=== PATIENT | male | born 1980 | race American Indian/Alaskan Native ===

== ENCOUNTER 2024-06-29 21:38 | Observation (INO) | payer MEDICARE, MEDICAID, SELFPAY ==
[2024-06-29 21:46] VITALS: BP 127/86; PULSE 82; RESP 18; TEMP 36.6; O2SAT 96
--- NOTE | 2024-06-29 22:01 | XR_ITS ---
Examination: CTA carotids with intravenous contrast CTA brain, head with intravenous contrast. 2-D sagittal, coronal reconstructions. 3-D reconstructions. Exam date and time: September 29, 2023 10:17 PM Indications: Stroke alert, onset focal neurologic deficit today CTDI: vol (mGy) 75 DLP: (mGycm) 447 Technique: Multiple CTA axial brain, head carotid images post intravenous contrast injection acute left sphenoid sinusitis cc, [id number]. 2-D sagittal, coronal reconstructions. 3-D reconstructions, 3-D post processing including vascular maximum intensity projection images. Low dose protocols were performed. One or more of the following dose reduction techniques were used; automated exposure control, adjustment of the mA and/or KV according to patient size, use of iterative reconstruction technique. Findings: Acute left sphenoid sinusitis No significant common carotid carotid bifurcation or internal carotid artery stenoses Codominant vertebral arteries with no critical stenosis No prevertebral large vessel arterial occlusions or thrombus Impression: No significant neck arterial stenoses No cerebral large vessel arterial occlusions, thrombus, dissection or cerebral aneurysm
--- NOTE | 2024-06-29 22:01 | XR_ITS ---
Examination: CT brain head without contrast. 2-D sagittal coronal reconstructions Date and time of exam:July 09, 2024 at 1008 hrs. Indications: Stroke alert, onset focal neurologic deficit today CTDI: vol (mGy):50.8 DLP: (mGycm):1001 Technique: Multiple CT axial sections of the brain have been obtained, 5 mm slice thickness. Contrast has not been administered. 2-D sagittal, coronal reconstructions have been obtained Low dose protocols were performed. One or more of the following dose reduction techniques were used; automated exposure control, adjustment of the mA and/or KV according to patient size, use of iterative reconstruction technique. Findings: No significant ventricular enlargement. Intra-axial or extra-axial hemorrhage density is not seen. No mass effect or midline shift Basal cisterns are not remarkable. Fourth ventricle is midline. Cranial vault intact. Impression: Negative for acute hemorrhage, mass effect or midline shift
--- NOTE | 2024-06-29 22:01 | EKG_ITS ---
[facility] Test Date: 2024-06-29 Pat Name: VASYL PITT Department: Room: - Gender: Male [employer]: : 1980 Requested By: Marcus Black Order Number: [id number] Reading MD: Marcus Black Measurements Intervals [place] Rate: 74 P: 66 RI: 181 QRS: 14 QRSD: 93 T: 64 QT: 371 QTc: 412 Interpretive Statements SINUS RHYTHM POSSIBLE RIGHT VENTRICULAR CONDUCTION DELAY [RSR (QR) IN V1/V2] SEPTAL MYOCARDIAL INFARCTION , PROBABLY OLD [40+ ms Q WAVE IN V1/V2] Compared to ECG 01/29/2024 12:15:14 Myocardial infarct finding now present /store/S0/[id number]/[id number].pdf
--- NOTE | 2024-06-29 22:02 | EDRME_ITS ---
Rapid Medical Screening Exam [facility] Arrival date/time: 06/29/24 21:38 44M with history of alcohol use (patient was drinking), anxiety and psych/drug abuse presents to ED with 1 hour of R-sided facial numbness and confusion. Patient's states patient may have had some cramping/seizure while sleeping. Patient states he's been drinking and doing drugs all his life and this feels different and does not feel like intoxication or withdrawal. Of note, patient has nystagmus on exam. Chief Complaint: Neuro Symptoms/Deficit Vital signs: Vital Signs Temperature 98 F 06/29/24 21:46 Pulse Rate 82 06/29/24 21:46 Respiratory Rate 18 06/29/24 21:46 Blood Pressure 127/86 H 06/29/24 21:46 Pulse Oximetry (%) 96 06/29/24 21:46 Oxygen Delivery Method Room Air 06/29/24 21:46
--- NOTE | 2024-06-29 22:05 | PC.NURSE ---
stroke consult Case # [id number]
[2024-06-29 22:21] VITALS: BP 131/66; PULSE 76; RESP 20; O2SAT 98
[2024-06-29 22:22] LABS: Basophils # (Auto) 0.1 Thou/mm3 (0.0-0.2); Basophils % (Auto) 1 % (0-2.5); Eosinophils # (Auto) 0.3 Thou/mm3 (0.0-0.5); Eosinophils % (Auto) 4 % (0-10); Hematocrit 45.2 % (41.0-53.0); Hemoglobin 15.5 g/dL (13.5-16.0); Immature Granulocytes % (Auto) 0 % (0-0); Immature Granulocytes Auto 0.03 Thou/mm3 (0.00-0.00); Lymphocytes # (Auto) 2.3 Thou/mm3 (1.0-4.8); Lymphocytes % (Auto) 30 % (10-50); Mean Corpuscular HGB Conc 34.3 g/dl (31.0-37.0); Mean Corpuscular Hemoglobin 30.2 pg (25.0-35.0); Mean Corpuscular Volume 88 fL (80-100); Monocytes # (Auto) 0.8 Thou/mm3 (0.0-0.8); Monocytes % (Auto) 11 % (0-12); Neutrophils % (Auto) 53 % (37-80); Nucleated Red Blood Cell % 0 /100 WBC (0); Platelet Count 259 Thou/mm3 (140-440); RDW Standard Deviation 39.6 fL (35.1-43.9); Red Blood Count 5.14 Miln/mm3 (4.50-5.90); White Blood Count 7.5 Thou/mm3 (3.8-10.6)
[2024-06-29 22:28] VITALS: PULSE 79
[2024-06-29 22:39] LABS: INR 1.1 (0.9-1.3); Partial Thromboplastin Time 25.1 Seconds (22.0-36.0)
[2024-06-29 22:42] LABS: Alanine Aminotransferase 19 U/L (10-49); Albumin, Serum 4.8 gm/dL (3.5-5.0); Albumin/Globulin Ratio 1.7 (1.2-2.2); Alcohol, Blood Medical 181.7 mg/dL (0-10.0); Alkaline Phosphatase 99 U/L (46-116); Anion Gap 5 (7-16); Aspartate Amino Transferase 19 U/L (0-34); BUN/Creatinine Ratio 9 Ratio (12-20); Bilirubin,Total 0.6 mg/dL (0.3-1.2); Blood Urea Nitrogen 7 mg/dL (9-23); Calcium 9.4 mg/dL (8.3-10.6); Calcium (Corrected) 9.4 mg/dL (8.5-10.1); Carbon Dioxide 29.9 mMol/L (20.0-31.0); Chloride 107 mMol/L (98-107); Creatinine (Component) 0.8 mg/dL (0.6-1.3); Estimated Creatinine Clearance 91.8 mL/min (>60); Globulin 2.8 gm/dL (2.3-3.5); Glucose 93 mg/dL (74-106); Magnesium 2.3 mg/dL (1.6-2.6); Osmolality,Calculated 281 (275-295); Potassium 3.9 mMol/L (3.4-5.1); Sodium 142 mMol/L (136-145); Total Protein 7.6 gm/dL (5.7-8.2); Troponin I < 0.002 ng/mL (0.0-0.045); eGFR > 60 See Note
--- NOTE | 2024-06-29 22:42 | PD.TNEURO ---
Tele Neuro Consultation Consultation Date 06/29/24 Most Recent Vital Signs Last Vital Signs Temp 98 F 06/29/24 21:46 Pulse 79 06/29/24 22:28 Resp 20 06/29/24 22:21 BP 131/66 H 06/29/24 22:21 Pulse Ox 98 06/29/24 22:21 O2 Del Method Room Air 06/29/24 22:21 Laboratory-Coagulation Panel PT 12.0 Seconds (9.0-12.2) 06/29/24 22:15 INR 1.1 (0.9-1.3) 06/29/24 22:15 APTT 25.1 Seconds (22.0-36.0) 06/29/24 22:15 Consultation Narrative [facility] Tele[facility]urology Consult [facility] Patient Name:???tiffanie barnett Date of :???1980 Date of Service:???06/29/2024 22:04:50 Diagnosis:?I63.89 - Cerebrovascular accident (CVA) due to other mechanism ([facility]) Impression: ?Mr. Barnett has left sided numbness on exam that he did not notice or tell me during the interview. He came to the ED with right face sensory change that has resolved and bilateral hand numbness. He feels like this is related to anxiety. He feels like he has dry mouth. He is not a thrombolytic candidate. He could be admitted for MRI brain to better evaluate for ischemic injury vs metabolic/toxic etiology. tox screen and alcohol level. Our recommendations are outlined below. Recommendations: ? Stroke/Telemetry Floor ? Neuro Checks ? Bedside Swallow Eval ? DVT Prophylaxis ? IV Fluids, Normal Saline ? Head of Bed 30 Degrees ? Euglycemia and Avoid Hyperthermia (PRN Acetaminophen) ? Initiate or continue Aspirin 325 MG daily ? Antihypertensives PRN if Blood pressure is greater than 220/120 or there is a concern for End organ damage/contraindications for permissive HTN. If blood pressure is greater than 220/120 give labetalol PO or IV or Vasotec IV with a goal of 15% reduction in BP during the first 24 hours. Sign Out: ? Discussed with Emergency Department Provider Advanced Imaging: Advanced imaging has been ordered. Results pending. Metrics: Last Known Well: 06/29/2024 17:00:00 Dispatch Time: 06/29/2024 22:04:50 Arrival Time: 06/29/2024 22:02:00 Initial Response Time: 06/29/2024 22:08:26Symptoms: right face felt odd. Initial patient interaction: 06/29/2024 22:17:19 NIHSS Assessment Completed: 06/29/2024 22:17:22Patient is not a candidate for Thrombolytic. Thrombolytic Medical Decision: 06/29/2024 22:17:24Patient was not deemed candidate for Thrombolytic because of following reasons: LKW outside 4.[address] head showed no acute hemorrhage or acute core infarct. I personally Reviewed the CT Head and it Showed no ICH Primary Provider Notified of Diagnostic Impression and Management Plan on: 06/29/2024 22:39:27 History of Present Illness:Patient is a 44 year old Male. Patient was brought by private transportation with symptoms of right face felt odd. 44 year old who admits to drinking before going to bed and presents with right face pulling sensation after falling asleep around 5 pm last known well. He thinks that it could be anxiety. He had previous HCT for headache and blurred vision this summer on review of the chart. He felt tingling in the hands that is now resolved. Past Medical History: ?There is no history of Stroke Medications: No Anticoagulant use? No Antiplatelet use Reviewed EMR for current medications Allergies:? Reviewed Social History: Alcohol Use: Yes Family History: There is no family history of premature cerebrovascular disease pertinent to this consultation ROS : 14 Points Review of Systems was performed and was negative except mentioned in HPI. Past Surgical History: There Is No Surgical History Contributory To Today?s Visit Examination: BP(127/86),?Pulse(82),?Blood Glucose(83) 1A: Level of Consciousness - Alert; keenly responsive?+ 0 1B: Ask Month and Age - Both Questions Right?+ 0 1C: Blink Eyes & Squeeze Hands - Performs Both Tasks?+ 0 2: Test Horizontal Extraocular Movements - Normal?+ 0 3: Test Visual Chapin - No Visual Loss?+ 0 4: Test Facial Palsy (Use Grimace if Obtunded) - Normal symmetry?+ 0 5A: Test Left Arm Motor Drift - No Drift for 10 Seconds?+ 0 5B: Test Right Arm Motor Drift - No Drift for 10 Seconds?+ 0 6A: Test Left Leg Motor Drift - No Drift for 5 Seconds?+ 0 6B: Test Right Leg Motor Drift - No Drift for 5 Seconds?+ 0 7: Test Limb Ataxia (FNF/Heel-You) - No Ataxia?+ 0 8: Test Sensation - Mild-Moderate Loss: Less Sharp/More Dull?+ 1 9: Test Language/Aphasia - Normal; No aphasia?+ 0 10: Test Dysarthria - Normal?+ 0 11: Test Extinction/Inattention - No abnormality?+ 0 NIHSS Score:?1 Pre-Morbid Modified Alan Scale:0 Points = No symptoms at all Spoke with :?Black in ED This consult was conducted in real time using interactive audio and video technology. Patient was informed of the technology being used for this visit and agreed to proceed. Patient located in hospital and provider located at home/office setting. Patient is being evaluated for possible acute neurologic impairment and high probability of imminent or life-threatening deterioration. I spent total of 35 minutes providing care to this patient, including time for face to face visit via telemedicine, review of medical records, imaging studies and discussion of findings with providers, the patient and/or family. Dr Toni Metz [facility] For Inpatient follow-up with [facility] physician please call [facility] at . As we are not an outpatient service for any post hospital discharge needs please contact the hospital for assistance. If you have any questions for the [facility] physicians or need to reconsult for clinical or diagnostic changes please contact us via [facility] at .
--- NOTE | 2024-06-29 23:00 | EDNOTE_ITS ---
Neuro Symptoms Deficit-RME/HPI General Chief Complaint: Neuro Symptoms/Deficit Stated Complaint: STATES FELT A SHIFT IN HIS FACE, DRY MOUTH Time Seen by Provider: 06/29/24 22:28 Arrival date/time: 06/29/24 21:38 RME / HPI RME / HPI Narrative: 06/29/24 21:38 44M with history of alcohol use, anxiety, remote hx of drug abuse presents to ED with 1 hour of R-sided facial numbness and confusion. Patient reported that he took 2 drinks and went to sleep and suddenly woke up feeling hot flushes and has numbness of the Rt side of his face. he also reported that he also felt cotton mouth and his mouth locked in a weird position. He reported that his symptoms lasted for one hour and resolved spontaneously. Denied any weakness, dysphagea, dizziness or blurry vision. He has ot seen a psychiatrist for his anxiety. Related Data Previous Rx's ?Medication ?Instructions ?Recorded cyclobenzaprine 5 mg tablet 5 mg PO TID PRN muscle spasm #30 07/07/23 tabs ibuprofen 600 mg tablet 600 mg PO Q6H #30 tabs 07/07/23 Allergies Allergy/AdvReac Type Severity Reaction Status Date / Time No Known Allergies Allergy Verified 06/29/24 21:40 ED Exam Narrative Physical exam: GEN: AOx3, able to speak full sentences, anxious, fidgity. no facial droop HEENT: NC/AC, oral mucosa moist, neck supple CVS: RRR, S1-S2 present, no murmurs appreciated RESP: CTAB GI: soft,non distended, non tender, NBS MSK: able to move all 4 limbs, no lower extremity edema SKIN: extensive tattoo, warm and dry CONFERENCE SERVICES DIRECTOR: CN II-XII and Sensation grossly intact. Course Quality Measures none Orders Category Date Time Status Bedside Blood Glucose NOW Care 06/29/24 22:01 Completed Orchid Grower NOW Care 06/29/24 22:01 Active Continuous Pulse Oximetry NOW Care 06/29/24 22:01 Completed EKG (ED ONLY) *Do not use* NOW Care 06/29/24 22:01 Active In and Out Catheter NEEDED Care 06/29/24 22:01 Active Insert IV NOW Care 06/29/24 22:01 Active NIH Stroke Scale now Care 06/29/24 22:01 Active NPO NOW Care 06/29/24 22:01 Active Nurse Swallow Screen x1 Care 06/29/24 22:01 Active Consult to Neurology / Tele-Neurology Routine Cons 06/29/24 22:[address] angio stroke protocol Stat Exams 06/29/24 22:[address] stroke protocol Stat Exams 06/29/24 22:01 Completed EKG (ED Only) Stat Exams 06/29/24 22:01 Draft Alcohol, Blood Medical Stat Lab 06/29/24 22:15 Completed CBC Stat Lab 06/29/24 22:15 Completed Comprehensive Metabolic Panel Stat Lab 06/29/24 22:15 Completed Drug Screen,Urine Stat Lab 06/29/24 22:01 Ordered Magnesium Stat Lab 06/29/24 22:15 Completed Partial Thromboplastin Time Stat Lab 06/29/24 22:15 Completed Prothrombin Time with INR Stat Lab 06/29/24 22:15 Completed Troponin I Stat Lab 06/29/24 22:15 Completed Urinalysis Stat Lab 06/29/24 22:01 Ordered Urine Culture Stat Lab 06/29/24 22:01 Ordered Aspirin Med 06/29/24 23:00 Once 325 mg PO X1 ONE Oxygen Delivery NOW RT 06/29/24 22:01 Active Vital Signs Vital signs: Vital Signs Temperature 98 F 06/29/24 21:46 Pulse Rate 82 06/29/24 21:46 Respiratory Rate 18 06/29/24 21:46 Blood Pressure 127/86 H 06/29/24 21:46 Pulse Oximetry (%) 96 06/29/24 21:46 Oxygen Delivery Method Room Air 06/29/24 21:46 Neuro Symptoms / Deficit MDM Narrative MDM Narrative:: Ct brain was -ve for any hemorrhage or mass effect. Teleneurologiest recommended to start the patient on Aspirin [id number] and admit for Stroke work up Ethyl level 181 Urine Drug screen still pending Patient data External records reviewed:: [facility] previous records Clinical information provided by:: patient and spouse Social determinants that could affect healthcare access:: alcohol use Patient has the following chronic illnesses:: Anxiety Polysubstance use disorder How is presenting disease/condition affected by chronic disease/condition?: exacerbated by Evaluation data The following diagnostics were reviewed and interpreted by me:: lab results, radiology exam(s) and EKG tracing(s) Lab and/or radiology exams considered but not ordered:: None Interpretation Summary: Possible stroke ? Anxiety Medications / Prescriptions Medications or Prescriptions considered but not ordered:: tPa Medication administrations:: Medication Administration History Aspirin (Aspirin 325 Mg Tablet) 325 mg PO X1 ONE Stop: 06/29/24 23:01 as above Consultations Consultation(s) initiated? (list below): Yes Diagnosis Neuro Differential Diagnosis: transient cerebral ischemia Most likely diagnosis given after review of the tests above:: Stroke ? Anxiety Admission Indicated Admission indicated?: indicated Admission Request Was there a request for admission?: Yes Admission Attestation Admission request attestation: Discussed case with [] from Hospitalist service regarding admission. Discussed patients ED course, exam findings, labs, and radiology results. The Hospitalist [agrees,declines] to accept the patient for admission. Disposition Plan Disposition Plan: Admit Discharge Plan Prescriptions/Referrals Prescriptions/Med Rec: No Action ibuprofen 600 mg tablet 600 mg PO Q6H Qty: 30 0RF cyclobenzaprine 5 mg tablet 5 mg PO TID PRN (Reason: muscle spasm) Qty: 30 0RF Problem List Clinical Impression: Cerebrovascular accident, Somatic complaints, multiple Patient/Caregiver Discharge Instructions Print Language: [place]
[2024-06-29] MEDS: Aspirin 325 MG TABLET PO (23:20)
[2024-06-29 23:39] LABS: Collection Type, Urine Clean Catch; RBC,Urine 0 /hpf (0-3); Squamous Epithelial Cell,Urine 0 /hpf (0-5)
[2024-06-29 23:48] LABS: Bilirubin,Urine Negative (Negative); Blood,Urine Negative (Negative); Clarity,Urine Clear (Clear/Hazy); Color,Urine Colorless (Lt Yel-Yel); Glucose, Urine Negative (Negative); Ketones,Urine Negative (Negative); Leukocyte Esterase,Urine Negative (Negative); Nitrite,Urine Negative (Negative); Protein,Urine Negative (Neg - Trace); Specific Gravity,Urine 1.018 (1.001-1.035); Urobilinogen,Urine Negative mg/dL (0.0-1.0); WBC,Urine < 1 /hpf (0-5)
[2024-06-29 23:55] LABS: Amphetamine/Methamp Scrn,U Negative (Negative); Barbiturate Screen,Urine Negative (Negative); Benzodiazepines Screen,Urine Negative (Negative); Benzoylecgonine Screen, Ur Negative (Negative); Fentanyl Screen,Urine Negative (Negative); Opiate Screen,Urine Negative (Negative); THC Screen,Urine Negative (Negative)
--- NOTE | 2024-06-29 23:55 | PD.RESHP ---
Documentation for date of: 06/29/24 [facility] History of Present Illness History of present illness: A 44-year-old male with a history of alcohol use disorder, anxiety, and polysubstance abuse presented to the ED with complaints of right-sided numbness. The patient reported drinking hard liquor with his earlier that evening, then going to sleep. He woke up and he felt like he was in the car with a loud speaker system and noticed mild numbness on the right side of his face, which had resolved by the time he arrived at the ED. He denied dizziness, chest pain, visual changes, palpitations, tinnitus, head trauma, or any other associated symptoms. The patient reported a history of anxiety but is not on medication for it, and mentioned increased stress at work recently. His , who was present, noted that the patient typically drinks hard liquor daily but was more aggressive after drinking today. The and the patient also mentioned that the patient sometimes experiences jaw spasms, with jaw muscle contractions and displacement to the side. On examination, the patient was hemodynamically stable. Labs including CBC and CMP were unremarkable. Urine tox screen was positive for alcohol. A stroke alert was initiated, and a CT and CTA of the head and neck were negative. A teleneuro consultation recommended starting aspirin and atorvastatin, and the patient was admitted for further evaluation with MRI to assess for potential neurologic causes of his symptoms PMH: Anxiety, alcohol use disorder, history of polysubstance abuse PSH: None Social history: Drinks hard liquor, currently denies any drug use, smokes tobacco Family history: Positive for heart disease Allergies NKDA Meds none Review of Systems Review of Systems Systems Reviewed: All systems reviewed, normal except as documented Exam Vital Signs Temp Pulse Resp BP Pulse Ox O2 Del Method 98 F 79 20 131/66 H 98 Room Air 06/29/24 21:46 06/29/24 22:28 06/29/24 22:21 06/29/24 22:21 06/29/24 22:21 06/29/24 22:21 Narrative Exam GENERAL: No acute distress, AAO x3, anxious, restless HEENT: Head AT/ NC. Mucous membranes moist. PERRL. NECK: Supple, no lymphadenopathy, no carotid bruits. CARDIOVASCULAR: RRR. Normal S1/S2, No m/r/g. No pitting edema of bilateral LEs. RESPIRATORY: CTAB. No wheezing, rhonchi, crackles. GASTROINTESTINAL: Abdomen soft, non tender no palpable masses. Bowel sounds present in all 4 quadrants. MUSCULOSKELETAL:?No cyanosis or edema, no visible joint swelling. NEUROLOGICAL: CN II-XII grossly intact. No focal deficits. Sensation intact, symmetric. PSYCHIATRIC: Awake and alert, not agitated. INTEGUMENTARY: No obvious rashes, no jaundice, normal turgor. Results: Labs 06/29/24 22:15 06/29/24 22:15 Labs: Short CBC 06/29/24 Range/Units 22:15 WBC 7.5 (3.8-10.6) Thou/mm3 Hgb 15.5 (13.5-16.0) g/dL Hct 45.2 (41.0-53.0) % Plt Count 259 (140-440) Thou/mm3 BMP 06/29/24 22:15 Sodium 142 Potassium 3.9 Chloride 107 Carbon Dioxide 29.9 BUN 7 L Creatinine 0.8 Glucose 93 Calcium 9.4 Cardiac Enzymes 06/29/24 Range/Units 22:15 Troponin I < 0.002 (0.0-0.045) ng/mL Liver Function 06/29/24 Range/Units 22:15 Total Bilirubin 0.6 (0.3-1.2) mg/dL AST 19 (0-34) U/L ALT 19 (10-49) U/L Alkaline Phosphatase 99 (46-116) U/L Albumin 4.8 (3.5-5.0) gm/dL Urine 06/29/24 Range/Units 22:54 Urine Color Colorless A (Lt Yel-Yel) Urine Clarity Clear (Clear/Hazy) Urine pH 7.0 (5.0-7.0) Ur Specific [place] 1.018 (1.001-1.035) Urine Protein Negative (Neg - Trace) Urine Glucose (UA) Negative (Negative) Quality Measures Quality Measures none Medications Home Medications and Allergies Allergies Allergy/AdvReac Type Severity Reaction Status Date / Time No Known Allergies Allergy Verified 06/29/24 21:40 Visit Medications Enoxaparin Sodium (Enoxaparin Sod Inj 40 Mg/0.4 Ml Syringe) 40 mg SC QDAY BOYD Stop: 07/14/24 08:59 Folic Acid (Folic Acid 1 Mg Tablet) 1 mg PO BID BOYD Stop: 07/05/24 08:59 Lorazepam (Lorazepam 2 Mg/Ml Vial) 0.5 mg IV Q2HR PRN PRN Reason: CIWA SCORE 8-13 Stop: 07/04/24 23:51 Lorazepam (Lorazepam 2 Mg/Ml Vial) 1 mg IV Q2HR PRN PRN Reason: CIWA SCORE 14-19 Stop: 07/04/24 23:51 Lorazepam (Lorazepam 2 Mg/Ml Vial) 2 mg IV Q2HR PRN PRN Reason: CIWA SCORE 20-25 Stop: 07/04/24 23:51 Lorazepam (Lorazepam 2 Mg/Ml Vial) 2 mg IVP X1 PRN PRN Reason: Breakthrough Agitation Thiamine HCl (Thiamine 100 Mg Tablet) 100 mg PO BID BOYD Stop: 07/05/24 08:59 Discontinued Medications Aspirin (Aspirin 325 Mg Tablet) 325 mg PO X1 ONE Stop: 06/29/24 23:01 Last Admin: 06/29/24 23:20 Dose: 325 mg Assessment & Plan Plan 44-year-old male history of alcohol use disorder came in with chief complaints of episode of numbness and was admitted for CVA rule out. #Numbness DDx TIA versus CVA versus anxiety versus alcohol intoxication Symptoms started after alcohol consumption, patient with described as he woke up from sleep in the car with a loud speaker system. CT head negative for mass, hemorrhage, midline shift CTA is negative for LVO Stroke alert was initiated In ED patient received 325 aspirin Very low suspicion of stroke, symptoms are most consistent with alcohol intoxication given the history. Also there might be component of anxiety. -NIHSS score 1 -Neurocheck Q4h -N.p.o. for now -Hypoglycemic state -Tylenol 40 mg daily -Control risk factors such as hypertension, hyperlipidemia -MR stroke protocol -Follow-up with the results -Consider whole stroke workup after MRI results #History of anxiety #History of alcohol abuse Patient denies any medication use he stated that usually he he knows how to cope with his anxiety Patient was extensively counseled about side effects of alcohol use -CIWA , last drink was today. Disposition: Tele obs DVT prophylaxis: Lovenox GI prophylaxis: None Diet: NPO Lines: PIV CODE STATUS:Full code Patient care was discussed with attending physician Dr. Koby Bermudez MD PGY-2 I have carefully reviewed this document. Due to imperfections in the voice software, there could be grammatical errors including phonetic/typographic errors. This in no way compromises the medical care the patient is receiving Attending Provider Attestation/Addendum Pt was evaluated and plan formulated together with the housestaff team. I have reviewed the residents note above and agree with most of its content. Please refer to the residents note for additional details. MR brain AM.
[2024-06-30] VITALS (14 sets, daily range): BP systolic 101–122; BP diastolic 64–83; PULSE 66–99; RESP 14–100; TEMP 36.5–37; O2SAT 95–100; BMI 19.5
--- NOTE | 2024-06-30 | XR_ITS ---
Examination: MRI brain without intravenous contrast. Date and time of exam: June 30, 2024 at 0737 hours INDICATIONS: Right-sided body numbness beginning yesterday Technique: Multiple axial and sagittal images of the brain obtained. Siemens high-resolution 1.5 Barby short bore scanners utilized. Sagittal sections, T1-weighted, TR 500, TE 14, are performed. Axial sections proton-density and T2-weighted have been obtained. Inversion recovery axial images, TR 9, 260, TE 111, TI 2500. Diffusion weighted images, axial sections, TR 4800, TE 128, B value 1000 Axial sections, ADC map, TR 4800, TE 128 Findings: Enlargement of the sella turcica is not present. The optic chiasm and infundibular are not remarkable. Prepontine and interpeduncular cisterns are not enlarged. There is no localized enlargement of the medulla or hung. Fourth ventricle and cerebellar tonsils appear normal in position. No subacute area of hemorrhage density is seen. Mass in the cerebellopontine angle region is not evident. Globes symmetrical. Orbital musculature including medial lateral rectus muscles do not exhibit abnormality. Diffusion-weighted images demonstrate no focus of restricted diffusion. Increased white matter signal not seen Mass effect upon the ventricular system is not identified. Impression: Negative for acute hemorrhage mass effect or midline shift No acute infarct No MR findings diagnostic for demyelinating disease Significant left ethmoid left maxillary antral chronic sinusitis
[2024-06-30] MEDS: LORazepam 2 MG/ML VIAL 0.5 MG IV ×2 (00:07→10:56)
--- NOTE | 2024-06-30 00:54 | PC.NURSE ---
Emergency contact Vidya can be reached @ [phone]
[2024-06-30 03:29] LABS: Collection Type, Urine Clean Catch
[2024-06-30 03:32] LABS: Bilirubin,Urine Negative (Negative); Blood,Urine Negative (Negative); Clarity,Urine Clear (Clear/Hazy); Color,Urine Colorless (Lt Yel-Yel); Glucose, Urine Negative (Negative); Ketones,Urine Negative (Negative); Leukocyte Esterase,Urine Negative (Negative); Nitrite,Urine Negative (Negative); Protein,Urine Negative (Neg - Trace); RBC,Urine < 1 /hpf (0-3); Specific Gravity,Urine 1.023 (1.001-1.035); Squamous Epithelial Cell,Urine < 1 /hpf (0-5); Urobilinogen,Urine Negative mg/dL (0.0-1.0); WBC,Urine < 1 /hpf (0-5)
[2024-06-30 03:39] LABS: Amphetamine/Methamp Scrn,U Negative (Negative); Barbiturate Screen,Urine Negative (Negative); Benzodiazepines Screen,Urine Negative (Negative); Benzoylecgonine Screen, Ur Negative (Negative); Fentanyl Screen,Urine Negative (Negative); Opiate Screen,Urine Negative (Negative); THC Screen,Urine Negative (Negative)
[2024-06-30 05:00] LABS: Basophils # (Auto) 0.1 Thou/mm3 (0.0-0.2); Basophils % (Auto) 1 % (0-2.5); Eosinophils # (Auto) 0.4 Thou/mm3 (0.0-0.5); Eosinophils % (Auto) 6 % (0-10); Hematocrit 44.1 % (41.0-53.0); Hemoglobin 14.7 g/dL (13.5-16.0); Immature Granulocytes % (Auto) 0 % (0-0); Immature Granulocytes Auto 0.02 Thou/mm3 (0.00-0.00); Lymphocytes # (Auto) 1.8 Thou/mm3 (1.0-4.8); Lymphocytes % (Auto) 26 % (10-50); Mean Corpuscular HGB Conc 33.3 g/dl (31.0-37.0); Mean Corpuscular Hemoglobin 29.9 pg (25.0-35.0); Mean Corpuscular Volume 90 fL (80-100); Monocytes # (Auto) 0.8 Thou/mm3 (0.0-0.8); Monocytes % (Auto) 11 % (0-12); Neutrophils # (Auto) 3.9 Thou/mm3 (1.8-7.7); Neutrophils % (Auto) 56 % (37-80); Nucleated Red Blood Cell % 0 /100 WBC (0); Platelet Count 257 Thou/mm3 (140-440); RDW Standard Deviation 40.2 fL (35.1-43.9); Red Blood Count 4.91 Miln/mm3 (4.50-5.90)
[2024-06-30 05:08] LABS: Anion Gap 6 (7-16); BUN/Creatinine Ratio 10 Ratio (12-20); Blood Urea Nitrogen 8 mg/dL (9-23); Carbon Dioxide 27.5 mMol/L (20.0-31.0); Chloride 108 mMol/L (98-107); Creatinine (Component) 0.8 mg/dL (0.6-1.3); Estimated Creatinine Clearance 91.8 mL/min (>60); Glucose 87 mg/dL (74-106); Osmolality,Calculated 278 (275-295); Potassium 4.1 mMol/L (3.4-5.1); Sodium 141 mMol/L (136-145); eGFR > 60 See Note
--- NOTE | 2024-06-30 07:31 | PC.NURSE ---
Patient transported to MRI with tech via wheelchair.
--- NOTE | 2024-06-30 08:56 | PC.CC ---
Patient is a 44 year-old male who presents to the hospital for CVA. Marsha ERWIN introduced self, role, and reason for visit to patient. At beside was patients , Vidya Rivera who patient provided consent to remain in the room during assessment. Patient appeared alert and oriented to self, location, and situation. The patient was pleasant and engaged in assessment. The patient confirmed information on demographics but reports he and his do not live together. Per patient's , she has her own home [address] [place] [id number]. Patient reports his is his main support system. 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 5 years. The patient reports he has generalized anxiety but does not take medication and is not connected to mental health services. Prior to being hospitalized patient was able to complete own ADLs and ambulate independently. The patient receives primary care at the [facility] and uses [facility] for prescription medication. The patient reports upon discharge he plans to return back home. coordinator volunteer services to remain available for any discharge needs.
[2024-06-30] MEDS: THIAMINE 100 MG TABLET PO ×2 (10:40→20:19)
[2024-06-30] MEDS: FOLIC ACID 1 MG TABLET PO ×2 (10:40→20:19)
[2024-06-30] MEDS: ENOXAPARIN SOD INJ 40 MG/0.4 ML SYRINGE SC (10:40)
--- NOTE | 2024-06-30 10:44 | PD.TNEUROPRO ---
Tele Neuro Progress Note Progress Note Date [facility] TeleNeurology Consult Services Routine Consult Follow-Up Patient Name:???Ector Miller Date of :???1980 Identification Number:??? Date of Service:???06/30/2024 10:40:06 Diagnosis?R29.810 - Facial numbness/ Facial weakness ?Y91.1 - Moderate alcohol intoxication Impression Mr. Miller has numbness in odd distributions as well as alcohol intoxication. MRI brain is negative for stroke and today he feels like his thinking is slow. I feel most likely at this point, alcohol related in terms of a hang-over . Recommend cutting back on alcohol. Ordered B12 level. Treat with oral B12 1000 mcg daily if <400. Can give supplemental Thiamine as well. Otherwise, no further recs. Call with questions. I will sign off. Our recommendations are outlined below Dispositions :No further recommendations Subjective I am seeing this patient in f/u. He is still having issues with thinking . The patient states thinking slowly at this point. Examination BP(136/76),?Pulse(76),?Temp(97.6),?Resp(15), 1A: Level of Consciousness - Alert; keenly responsive?+ 0 1B: Ask Month and Age - Both Questions Right?+ 0 1C: Blink Eyes & Squeeze Hands - Performs Both Tasks?+ 0 2: Test Horizontal Extraocular Movements - Normal?+ 0 3: Test Visual Chapin - No Visual Loss?+ 0 4: Test Facial Palsy (Use Grimace if Obtunded) - Normal symmetry?+ 0 5A: Test Left Arm Motor Drift - No Drift for 10 Seconds?+ 0 5B: Test Right Arm Motor Drift - No Drift for 10 Seconds?+ 0 6A: Test Left Leg Motor Drift - No Drift for 5 Seconds?+ 0 6B: Test Right Leg Motor Drift - No Drift for 5 Seconds?+ 0 7: Test Limb Ataxia (FNF/Heel-You) - No Ataxia?+ 0 8: Test Sensation - Normal; No sensory loss?+ 0 9: Test Language/Aphasia - Normal; No aphasia?+ 0 10: Test Dysarthria - Normal?+ 0 11: Test Extinction/Inattention - No abnormality?+ 0 NIHSS Score:?0 This consult was conducted in real time using interactive audio and video technology. Patient was informed of the technology being used for this visit and agreed to proceed. Patient located in hospital and provider located at home/office setting. Telehealth Neurology consultation was provided. I spent 20 minutes providing telehealth care. This includes time spent for face to face visit via telemedicine, review of medical records, imaging studies and discussion of findings with providers, the patient and/or family. Dr Austin Calles [facility] For Inpatient follow-up with [facility] physician please call [facility] at . As we are not an outpatient service for any post hospital discharge needs please contact the hospital for assistance. If you have any questions for the [facility] physicians or need to reconsult for clinical or diagnostic changes please contact us via [facility] at
[2024-06-30 11:18] LABS: Vitamin B12 379 pg/mL (211-911)
--- NOTE | 2024-06-30 14:10 | PC.NURSE ---
REPORT GIVEN TO CHRISTIAN, PATIENT WILL TRANSFER TO FLOOR ROOM 270
[2024-06-30] MEDS: chlordiazePOXIDE HCl 25 MG CAPSULE PO ×2 (15:37→21:25)
--- NOTE | 2024-06-30 15:48 | ESPR_ITS ---
<Statement entered by Shannon Day DO - 06/30/24 22:52> Senior attestation: Patient was examined and case was reviewed with team including attending physician. Note reviewed, I agree with most of its contents and agree with the patient's care. Additional comments as follows: Added librium and hydroxyzine due to alcohol use and withdrawal concern, low suspicion for CVA at this time given work up findings. Anticipate discharge in 24-48 hours. Shannon Day DO PGY-3 Documentation for date of: 06/30/24 Subjective Subjective Interval history: Patient was seen and examined at bedside. Per nursing, patient was experiencing severe anxiety, mild tremor, perspiration, headache. Initial CIWA score 12. Repeat CIWA this morning 9. He is denying any shortness of breath, chest pain, headache, nausea or vomiting. Vitals within normal limits. Labs significant for urine alcohol level 181. Will start hydroxyzine 25 p.o. twice daily as needed for anxiety. Will continue to monitor patient.?No further complaints at this time. Review of systems otherwise negative except what is mentioned above. Exam Vital Signs Temp Pulse Resp BP Pulse Ox O2 Del Method O2 Flow Rate 97.8 F 87 18 109/72 98 Room Air 1 06/30/24 14:33 06/30/24 14:33 06/30/24 14:33 06/30/24 14:33 06/30/24 14:33 06/30/24 14:33 06/30/24 06:07 Narrative Exam GENERAL: No acute distress, AAO x3, anxious HEENT: Head AT/ NC. Mucous membranes moist. PERRL. NECK: Supple, no lymphadenopathy, no carotid bruits. CARDIOVASCULAR: RRR. Normal S1/S2, No m/r/g. No pitting edema of bilateral LEs. RESPIRATORY: CTAB. No wheezing, rhonchi, crackles. GASTROINTESTINAL: Abdomen soft, non tender no palpable masses. Bowel sounds present in all 4 quadrants. MUSCULOSKELETAL:?No cyanosis or edema, no visible joint swelling. NEUROLOGICAL: CN II-XII grossly intact. No focal deficits. Sensation intact, symmetric. PSYCHIATRIC: Awake and alert, not agitated. INTEGUMENTARY: No obvious rashes, no jaundice, normal turgor. Objective Labs 07/01/24 04:25 07/01/24 04:25 Labs: Laboratory Results - last 24 hr 11/07/24 11/07/24 11/08/24 22:15 22:54 03:25 WBC 7.5 RBC 5.14 Hgb 15.5 Hct 45.2 MCV 88 MCH 30.2 MCHC 34.3 RDW Std Deviation 39.6 Plt Count 259 Neut % (Auto) 53 Lymph % (Auto) 30 [place] % (Auto) 11 Eos % (Auto) 4 Baso % (Auto) 1 Neut # (Auto) 4.0 Lymph # (Auto) 2.3 [place] # (Auto) 0.8 Eos # (Auto) 0.3 Baso # (Auto) 0.1 Immature Gran # (Auto) 0.03 H Absolute Nucleated RBC 0.00 Immature Gran % 0 Nucleated RBC % 0 PT 12.0 INR 1.1 APTT 25.1 Sodium 142 Potassium 3.9 Chloride 107 Carbon Dioxide 29.9 Anion Gap 5 L BUN 7 L Creatinine 0.8 Estim Creat Clear Calc 91.8 eGFR > 60 BUN/Creatinine Ratio 9 L Glucose 93 Calculated Osmolality 281 Calcium 9.4 Corrected Calcium 9.4 Magnesium 2.3 Total Bilirubin 0.6 AST 19 ALT 19 Alkaline Phosphatase 99 Troponin I < 0.002 Total Protein 7.6 Albumin 4.8 Globulin 2.8 Albumin/Globulin Ratio 1.7 Vitamin B12 Ur Collection Type Clean Catch Clean Catch Urine Color Colorless A Colorless A Urine Clarity Clear Clear Urine pH 7.0 7.0 Ur Specific [place] 1.018 1.023 Urine Protein Negative Negative Urine Glucose (UA) Negative Negative Urine Ketones Negative Negative Urine Blood Negative Negative Urine Nitrite Negative Negative Urine Bilirubin Negative Negative Urine Urobilinogen (Auto) Negative Negative Ur Leukocyte Esterase Negative Negative Urine RBC 0 < 1 Urine WBC < 1 < 1 Ur Squamous Epith Cells 0 < 1 Urine Bacteria None None Urine Opiates Screen Negative Negative Urine Fentanyl Screen Negative Negative Ur Barbiturates Screen Negative Negative U Amphetamin/Meth Scrn Negative Negative U Benzodiazepines Scrn Negative Negative U Cocaine Metab Screen Negative Negative U Marijuana (THC) Screen Negative Negative Ethyl Alcohol 181.7 H 06/30/24 04:40 WBC 7.0 RBC 4.91 Hgb 14.7 Hct 44.1 MCV 90 MCH 29.9 MCHC 33.3 RDW Std Deviation 40.2 Plt Count 257 Neut % (Auto) 56 Lymph % (Auto) 26 [place] % (Auto) 11 Eos % (Auto) 6 Baso % (Auto) 1 Neut # (Auto) 3.9 Lymph # (Auto) 1.8 [place] # (Auto) 0.8 Eos # (Auto) 0.4 Baso # (Auto) 0.1 Immature Gran # (Auto) 0.02 H Absolute Nucleated RBC 0.00 Immature Gran % 0 Nucleated RBC % 0 PT INR APTT Sodium 141 Potassium 4.1 Chloride 108 H Carbon Dioxide 27.5 Anion Gap 6 L BUN 8 L Creatinine 0.8 Estim Creat Clear Calc 91.8 eGFR > 60 BUN/Creatinine Ratio 10 L Glucose 87 Calculated Osmolality 278 Calcium 9.0 Corrected Calcium Magnesium Total Bilirubin AST ALT Alkaline Phosphatase Troponin I Total Protein Albumin Globulin Albumin/Globulin Ratio Vitamin B12 379 Ur Collection Type Urine Color Urine Clarity Urine pH Ur Specific [place] Urine Protein Urine Glucose (UA) Urine Ketones Urine Blood Urine Nitrite Urine Bilirubin Urine Urobilinogen (Auto) Ur Leukocyte Esterase Urine RBC Urine WBC Ur Squamous Epith Cells Urine Bacteria Urine Opiates Screen Urine Fentanyl Screen Ur Barbiturates Screen U Amphetamin/Meth Scrn U Benzodiazepines Scrn U Cocaine Metab Screen U Marijuana (THC) Screen Ethyl Alcohol Quality Measures Quality Measures none Assessment & Plan Assessment Current Active Medications: Generic Name Dose Route Start Last Admin Trade Name Freq PRN Reason Stop Dose Admin Chlordiazepoxide HCl 25 mg 06/30/24 14:25 06/30/24 15:37 Chlordiazepoxide Hcl 25 Mg Capsule PO 07/05/24 14:24 25 mg Q8HR BOYD Administration Enoxaparin Sodium 40 mg 06/30/24 09:00 06/30/24 10:40 Enoxaparin Sod Inj 40 Mg/0.4 Ml Syringe SC 07/14/24 08:59 40 mg QDAY BOYD Administration Folic Acid 1 mg 06/30/24 09:00 06/30/24 10:40 Folic Acid 1 Mg Tablet PO 07/05/24 08:59 1 mg BID BOYD Administration Lorazepam 0.5 mg 06/29/24 23:52 06/30/24 10:56 Lorazepam 2 Mg/Ml Vial IV 07/04/24 23:51 0.5 mg Q2HR PRN Administration CIWA SCORE 8-13 Lorazepam 1 mg 06/29/24 23:52 Lorazepam 2 Mg/Ml Vial IV 07/04/24 23:51 Q2HR PRN CIWA SCORE 14-19 Lorazepam 2 mg 06/29/24 23:52 Lorazepam 2 Mg/Ml Vial IV 07/04/24 23:51 Q2HR PRN CIWA SCORE 20-25 Lorazepam 2 mg 06/29/24 23:52 Lorazepam 2 Mg/Ml Vial IVP X1 PRN Breakthrough Agitation Thiamine HCl 100 mg 06/30/24 09:00 06/30/24 10:40 Thiamine 100 Mg Tablet PO 07/05/24 08:59 100 mg BID BOYD Administration Plan 44-year-old male history of alcohol use disorder came in with chief complaints of episode of numbness and was admitted for CVA rule out. #Numbness DDx TIA versus CVA versus anxiety versus alcohol intoxication Symptoms started after alcohol consumption, patient with described as he woke up from sleep in the car with a loud speaker system. CT head negative for mass, hemorrhage, midline shift CTA is negative for LVO. MRI negative for acute changes. In ED patient received 325 aspirin Very low suspicion of stroke, symptoms are most consistent with alcohol intoxication given the history. Also there might be component of anxiety. NIHSS score 1 -diet regular -Control risk factors such as hypertension, hyperlipidemia #History of anxiety #History of alcohol abuse Patient denies any medication use he stated that usually he he knows how to cope with his anxiety Patient was extensively counseled about side effects of alcohol use -CIWA score 9 today -start hydroxyzine 25 mg p.o. twice daily as needed Disposition: Tele obs DVT prophylaxis: Lovenox GI prophylaxis: None Diet: Regular Lines: PIV CODE STATUS:Full code The patient's management plan was discussed with my attending physician Dr. Walker and seniors Dr. Dya/Dr. Styles. Laurie Wyatt, PGY-1 Attending Provider Attestation/Addendum Katrin Gutierrez, DO, attest that I was physically present for the tavera portions of the service and evaluated the patient with the resident and I reviewed and discussed the case with the resident and agree with the resident's findings and plans of care as documented above Patient seen and eval this afternoon in the ED. is at bedside. The patient states that he drinks 4-5 tall cans of mikes harder lemonade daily. However, he suffers from a lot of anxiety and has tried to quit drinking. Patient was acting out of the ordinary per his and was subsequently brought to the ED yesterday. She states that he appeared to speak with his jaw crooked yesterday. However, MRI was done today showing no evidence of CVA. Patient does appear to have a CIWA score of 12 at this time with headache, nausea, tremor, anxiety and agitation. at bedside is asking if patient can receive medications for anxiety going home. Discussed the concern for addictive properties of benzodiazepines given for anxiety. states that she does not wish for patient to be dependent on medications. May consider hydroxyzine for anxiety upon discharge. However, patient has been seeing a physician outpatient at the [facility] during which he received naltrexone. However that physician to no longer works there and patient has 6 more pills in naltrexone at home. Will have case management social worker provided resources for substance rehabilitation. Will continue to monitor will refer acute alcohol withdrawal at this time.
[2024-07-01] VITALS (12 sets, daily range): BP systolic 94–123; BP diastolic 59–84; PULSE 55–113; RESP 15–99; TEMP 36.2–37.1; O2SAT 97–100; BMI 19.5
[2024-07-01] MEDS: chlordiazePOXIDE HCl 25 MG CAPSULE PO ×3 (05:08→21:36)
[2024-07-01 05:58] LABS: Basophils # (Auto) 0.1 Thou/mm3 (0.0-0.2); Basophils % (Auto) 1 % (0-2.5); Eosinophils # (Auto) 0.5 Thou/mm3 (0.0-0.5); Eosinophils % (Auto) 6 % (0-10); Hematocrit 44.2 % (41.0-53.0); Hemoglobin 14.6 g/dL (13.5-16.0); Immature Granulocytes % (Auto) 0 % (0-0); Immature Granulocytes Auto 0.02 Thou/mm3 (0.00-0.00); Lymphocytes # (Auto) 2.3 Thou/mm3 (1.0-4.8); Lymphocytes % (Auto) 30 % (10-50); Mean Corpuscular Hemoglobin 30.5 pg (25.0-35.0); Mean Corpuscular Volume 92 fL (80-100); Monocytes # (Auto) 0.8 Thou/mm3 (0.0-0.8); Monocytes % (Auto) 11 % (0-12); Neutrophils % (Auto) 52 % (37-80); Nucleated Red Blood Cell % 0 /100 WBC (0); Platelet Count 235 Thou/mm3 (140-440); RDW Standard Deviation 42.2 fL (35.1-43.9); Red Blood Count 4.79 Miln/mm3 (4.50-5.90); White Blood Count 7.8 Thou/mm3 (3.8-10.6)
[2024-07-01 06:32] LABS: Anion Gap 6 (7-16); BUN/Creatinine Ratio 26 Ratio (12-20); Blood Urea Nitrogen 21 mg/dL (9-23); Calcium 8.8 mg/dL (8.3-10.6); Carbon Dioxide 28.2 mMol/L (20.0-31.0); Chloride 108 mMol/L (98-107); Creatinine (Component) 0.8 mg/dL (0.6-1.3); Estimated Creatinine Clearance 89.4 mL/min (>60); Glucose 81 mg/dL (74-106); Osmolality,Calculated 285 (275-295); Potassium 3.6 mMol/L (3.4-5.1); Sodium 142 mMol/L (136-145); eGFR > 60 See Note
[2024-07-01] MEDS: LORazepam 2 MG/ML VIAL 0.5 MG IV (06:56)
--- NOTE | 2024-07-01 06:58 | PC.NURSE ---
Pt. refused beds alarm at this time. Pt. feeling anxious, nausea, headache. CIWA performed and scored 10. pt. is AOX4, ativan given per PRN orders. pt,. educated on fall precautions and agrees to call. Call light and belongings within reach.
[2024-07-01] MEDS: ACETAMINOPHEN 325 MG TABLET 650 MG PO (07:44)
[2024-07-01] MEDS: ENOXAPARIN SOD INJ 40 MG/0.4 ML SYRINGE SC (08:07)
[2024-07-01] MEDS: FOLIC ACID 1 MG TABLET PO ×2 (08:07→20:17)
[2024-07-01] MEDS: THIAMINE 100 MG TABLET PO ×2 (08:07→20:17)
[2024-07-01] MEDS: ONDANSETRON INJ 2 MG/ML INJ 2 ML 4 MG IV ×2 (08:25→20:16)
--- NOTE | 2024-07-01 08:26 | PC.NURSE ---
Dr. Wyatt at bedside, [facility] reassessed and at 22 at this time. orders to give PRN atarax now and zofran. Dr. Wyatt states I will ask my senior about giving an extra dose of Ativan now since next dose cant be given until 11 AM.
[2024-07-01] MEDS: hydrOXYzine HCL 25 MG TABLET PO (08:32)
[2024-07-01] MEDS: LORazepam 2 MG/ML VIAL IVP (10:00)
--- NOTE | 2024-07-01 10:13 | ESPR_ITS ---
<Statement entered by Shannon Day DO - 07/01/24 15:30> Senior attestation: Patient was examined and case was reviewed with team including attending physician. Note reviewed, I agree with most of its contents and agree with the patient's care. Discharge was initially planned however patient noted to vomit this morning with tremors, CIWA reported 20+. Will continue treatment for alcohol withdrawal. Following neurology recommendations, vitamin B12 given x1 today. Had extensive discussion with patient and family today, patient describes strong desire to quit alcohol use, however family is interested in receiving prescription of ativan upon discharge. Have been explained the risks of benzodiazepine use, encouraged to speak with case management team who will provide resources for alcohol cessation. Shannon Day DO PGY-3 Documentation for date of: 07/01/24 Subjective Subjective Interval history: Patient was seen and examined at bedside. Per nursing, patient was experiencing headache and numbness/tingling earlier in the morning. He was given 0.5 mg Ativan along with Tylenol 650 p.o.? Patient stated that he is still experiencing anxiety, nausea, decreased appetite, headache. This is the longest time patient has gone without a drink. An episode of vomiting was witnessed at bedside and minor noticeable tremor of hands. No visible sweating. Recalculated CIWA was 22. Patient was given hydroxyzine 25 p.o. x 1, Zofran, 2 mg Ativan IV x 1. Labs and vitals reviewed within normal limits. Will continue CIWA protocol. Review of systems otherwise negative except what is mentioned above. Exam Vital Signs Temp Pulse Resp BP Pulse Ox O2 Del Method O2 Flow Rate 97.9 F 88 17 115/75 99 Room Air 1 07/01/24 07:45 07/01/24 08:29 07/01/24 08:29 07/01/24 07:45 07/01/24 07:45 07/01/24 07:45 06/30/24 06:07 Narrative Exam General: Alert and oriented x3. Anxious but cooperative Eyes: Pupils are equal and reactive to light bilaterally HEENT: Atraumatic, normocephalic. No JVD noted. Mucosa moist. Cardiovascular: Normal S1 and S2. Regular rate and rhythm. No pitting edema Respiratory: Lungs are clear to auscultation bilaterally. No wheezing or crackles heard. Abdomen: Soft, nontender, not distended, normal bowel sounds. Skin: Warm to touch, dry, no rashes noted Musculoskeletal: No gross injuries. Able to move all 4 extremities. Neuro: Alert and oriented x3. No focal neuro deficits. Psych:Anxioius, CIWA 22, mild hand tremors Objective Labs 07/01/24 04:25 07/01/24 04:25 Labs: Laboratory Results - last 24 hr 06/30/24 07/01/24 04:40 04:25 WBC 7.8 RBC 4.79 Hgb 14.6 Hct 44.2 MCV 92 MCH 30.5 MCHC 33.0 RDW Std Deviation 42.2 Plt Count 235 Neut % (Auto) 52 Lymph % (Auto) 30 [place] % (Auto) 11 Eos % (Auto) 6 Baso % (Auto) 1 Neut # (Auto) 4.0 Lymph # (Auto) 2.3 [place] # (Auto) 0.8 Eos # (Auto) 0.5 Baso # (Auto) 0.1 Immature Gran # (Auto) 0.02 H Absolute Nucleated RBC 0.00 Immature Gran % 0 Nucleated RBC % 0 Sodium 142 Potassium 3.6 D Chloride 108 H Carbon Dioxide 28.2 Anion Gap 6 L BUN 21 Creatinine 0.8 Estim Creat Clear Calc 89.4 eGFR > 60 BUN/Creatinine Ratio 26 H Glucose 81 Calculated Osmolality 285 Calcium 8.8 Vitamin B12 379 Quality Measures Quality Measures none Assessment & Plan Assessment Current Active Medications: Generic Name Dose Route Start Last Admin Trade Name Freq PRN Reason Stop Dose Admin Acetaminophen 650 mg 07/01/24 07:26 07/01/24 07:44 Acetaminophen 325 Mg Tablet PO 07/31/24 07:25 650 mg Q6HR PRN Administration Pain 1-3 or Fever > 101 Chlordiazepoxide HCl 25 mg 06/30/24 14:25 07/01/24 05:08 Chlordiazepoxide Hcl 25 Mg Capsule PO 07/05/24 14:24 25 mg Q8HR BOYD Administration Enoxaparin Sodium 40 mg 06/30/24 09:00 07/01/24 08:07 Enoxaparin Sod Inj 40 Mg/0.4 Ml Syringe SC 07/14/24 08:59 40 mg QDAY BOYD Administration Folic Acid 1 mg 06/30/24 09:00 07/01/24 08:07 Folic Acid 1 Mg Tablet PO 07/05/24 08:59 1 mg BID BOYD Administration Hydroxyzine HCl 25 mg 06/30/24 16:47 07/01/24 08:32 Hydroxyzine Hcl 25 Mg Tablet PO 07/30/24 20:59 25 mg BID PRN Administration ANXIETY Lorazepam 0.5 mg 06/29/24 23:52 07/01/24 06:56 Lorazepam 2 Mg/Ml Vial IV 07/04/24 23:51 0.5 mg Q2HR PRN Administration CIWA SCORE 8-13 Lorazepam 1 mg 06/29/24 23:52 Lorazepam 2 Mg/Ml Vial IV 07/04/24 23:51 Q2HR PRN CIWA SCORE 14-19 Lorazepam 2 mg 06/29/24 23:52 Lorazepam 2 Mg/Ml Vial IV 07/04/24 23:51 Q2HR PRN CIWA SCORE 20-25 Lorazepam 2 mg 06/29/24 23:52 Lorazepam 2 Mg/Ml Vial IVP X1 PRN Breakthrough Agitation Ondansetron HCl 4 mg 07/01/24 08:22 07/01/24 08:25 Ondansetron Inj 2 Mg/Ml Inj 2 Ml IV 07/31/24 08:21 4 mg Q6HR PRN Administration NAUSEA OR VOMITING Protocol Thiamine HCl 100 mg 06/30/24 09:00 07/01/24 08:07 Thiamine 100 Mg Tablet PO 07/05/24 08:59 100 mg BID BOYD Administration Plan 44-year-old male history of alcohol use disorder came in with chief complaints of episode of numbness and was admitted for CVA rule out. #Numbness DDx TIA versus CVA versus anxiety versus alcohol intoxication Symptoms started after alcohol consumption, patient with described as he woke up from sleep in the car with a loud speaker system. CT head negative for mass, hemorrhage, midline shift CTA is negative for LVO. MRI negative for acute changes. In ED patient received 325 aspirin Very low suspicion of stroke, symptoms are most consistent with alcohol intoxication given the history. Also there might be component of anxiety. NIHSS score 1 -diet regular -Control risk factors such as hypertension, hyperlipidemia #History of anxiety #History of alcohol abuse Patient denies any medication use he stated that usually he he knows how to cope with his anxiety Patient was extensively counseled about side effects of alcohol use -CIWA score 22 today -start hydroxyzine 25 mg p.o. twice daily as needed -patient had worsening symptoms this morning with headache, n/v -gave lorazepam 2 mg IV x1 -keep assessing for additional doses -per neuro rec, patient was given B12 inj 1000mcg x1 Disposition: Tele, CIWA DVT prophylaxis: Lovenox GI prophylaxis: None Diet: Regular Lines: PIV CODE STATUS:Full code The patient's management plan was discussed with my attending physician Dr. Walker and senior Dr. Day. Laurie Wyatt, PGY-1 Attending Provider Attestation/Addendum Brenda, Katrin Walker, DO, attest that I was physically present for the tavera portions of the service and evaluated the patient with the resident and I reviewed and discussed the case with the resident and agree with the resident's findings and plans of care as documented above Patient seen and evaluated this Am. He endorses nausea, headache, vomiting and anxiety. at bedside in afternoon requesting for medications for patient to have upon discharge. Patient has been very agitated and states that he needs medications for his panic attacks, otherwise he will go back to drinking. Explained to both patient and that he needs to go see a psychiatrist outpatient and f/u with substance rehabilitation program. However, patient stated he cannot go into a program because he needs to work. Patient is very insistent that he needs medications. Explained to them that benzodiazepines can also be very addictive and result in a new addiction. Patient and states that they need medications to hold him over until his next follow up. Discussed the risks of withdrawals from both medications and substances with patient and . Will continue with current management at this time as his CIWA score remains elevated. Will taper librium at this time and have family welfare social work professor speak with patient regarding substance rehab.
--- NOTE | 2024-07-01 11:08 | PC.NURSE ---
Spoke with Pt. and at bedside. Both persons concerned with Discharge planning. Per pt. and family pt shelton with severe anxiety by drinking alcohol. Pt. reports trying many other things such as deep breathing, relaxation techniques, and other methods of coping with and treating anxiety, but alcohol is the only thing that pt. reports has helped deal with the anxiety. Pt. and are concerned about treatment pt. will receive when going home. MASTER Mendoza notified that pt. needs community resources for alcoholism and alcohol cessation.
--- NOTE | 2024-07-01 12:45 | PC.NURSE ---
Addendum entered by Norma Greco RN 07/01/24 12:53: Dr. Wyatt agrees to call pt. Kenna, phone number for Kenna provided to Dr. Wyatt. Original Note: Dr. Wyatt aware of CIWA score of 20. orders to hold off on PRN ativan order at this time, i will come see him again and we can reassess on the ativan need/dose. Dr. Wyatt also made aware of extensive conversation about pt. alcohol addiction and his need and desire to quit drinking, also made aware of pt. anxiety due to working two jobs 7 days a week. Pt. family and pt. requesting to coordinate plans for discharge now and requests to get medication for home to help with anxiety, at least for a short period of time, until a new primary doctor can be established. Per Dr. Wyatt I will speak to Dr. Walker about this issue.
[2024-07-01] MEDS: CYANOCOBALAMIN INJ 1,000 mCg/ML VIAL 1000 MCG IM (13:07)
--- NOTE | 2024-07-01 14:46 | PC.NURSE ---
Pt. refusing bed alarm again, fall precautions and education provided to pt. and agrees. at bedside.
--- NOTE | 2024-07-01 17:57 | PC.NURSE ---
station manager tech called to RN to notify that pt. leads were off. When RN entered room to check on pt., pt. was in the shower despite being told by the doctor that he could not get in the shower at this due to alcohol withdrawal symptoms. When asking pt. who told him it was okay to get in the shower pt. states no one, I had to shower. Pt. provided with towels and educated on how to pull cable in shower for assistance. RN attempted to call Dr. Yoselin yee to notify of issues, no response by provider.
[2024-07-01] MEDS: LORazepam 2 MG/ML VIAL IV (20:17)
[2024-07-02] VITALS: PULSE 111
[2024-07-02] MEDS: hydrOXYzine HCL 25 MG TABLET PO (00:21)
== END 2024-07-02 01:31 | disposition left against medical advice (07) ==
LOC: SERX 23:50 → SERHOLD 06-30 06:19 → S2NX 06-30 14:28
PROVIDERS: Physician Assistant; Psychiatry & Neurology Neurology; Admitting Provider Internal Medicine; Emergency Provider Emergency Medicine; PCP Physician Assistant; Visit Provider Internal Medicine
DX: F10.229 Alcohol dependence with intoxication, unspecified (principal); F41.9 Anxiety disorder, unspecified; R29.701 NIHSS score 1; Z82.49 Family history of ischemic heart disease and other diseases of the circulatory system
CPT/HCPCS: 36415; 70450; 70496; 70498; 70551; 80048; 80053; 80307; 80320; 81001; 82607; 83735; 84484; 85025; 85610; 85730; 87086; 93005; 96372; 99285; A4649; G0378; J1650; J2060; J2405; J3420; Q9967; A9270; G0480

== ENCOUNTER 2024-10-26 17:56 | Emergency (ER) | payer MEDICARE, MEDICAID, SELFPAY ==
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
[2024-10-26 18:34] VITALS: BMI 25.8
== END 2024-10-26 18:50 ==
LOC: SERX 18:39
PROVIDERS: Emergency Provider Emergency Medicine
DX: Z02.89 Encounter for other administrative examinations (principal)
CPT/HCPCS: 99281

== ENCOUNTER 2025-03-03 07:24 | Emergency (ER) | payer MEDICARE, MEDICAID, SELFPAY ==
[2025-03-03 07:29] VITALS: PULSE 62; RESP 12; O2SAT 98; BMI 21.9
[2025-03-03 07:31] VITALS: BP 128/87; PULSE 62; RESP 16; TEMP 36.6; O2SAT 100
--- NOTE | 2025-03-03 07:44 | XR_ITS ---
Examination: CT brain head without contrast. 2-D sagittal coronal reconstructions Date and time of exam:March 03, 2025, 0802 hrs. Indications: Onset of blurred vision this morning, history stroke alert June 30, 2024 CTDI: vol (mGy):49.9 DLP: (mGycm):900 Technique: Multiple CT axial sections of the brain have been obtained, 5 mm slice thickness. Contrast has not been administered. 2-D sagittal, coronal reconstructions have been obtained Low dose protocols were performed. One or more of the following dose reduction techniques were used; automated exposure control, adjustment of the mA and/or KV according to patient size, use of iterative reconstruction technique. Findings: No significant ventricular enlargement. Atrophy in the left temporal lobe Intra-axial or extra-axial hemorrhage density is not seen. No mass effect or midline shift Basal cisterns are not remarkable. Fourth ventricle is midline. Cranial vault intact. Impression: Negative for acute hemorrhage, mass effect or midline shift Advise clinical correlation and follow-up accordingly
--- NOTE | 2025-03-03 07:48 | EDNOTE_ITS ---
ED General RME/HPI General Chief complaint: General Adult/Misc Complain Stated complaint: VISION DISTURBANCE Time Seen by Provider: 03/03/25 07:43 Arrival date/time: 03/03/25 07:24 RME / HPI RME / HPI narrative: see [facility] Related Data Previous Rx's ?Medication ?Instructions ?Recorded cyclobenzaprine 5 mg tablet 5 mg PO TID PRN muscle spa sm #30 07/07/23 tabs ibuprofen 600 mg tablet 600 mg PO Q6H #30 tabs 07/07 Allergies Allergy/AdvReac Type Severity Reaction Status Date / Time No Known Allergies Allergy Verified 03/03/25 07:33 Review of Systems Review of Systems Systems Reviewed: All systems reviewed, normal except as documented ED Exam Narrative Physical exam: Physical Exam GENERAL: NAD, AAOx3 HEENT: Moist mucosa. Eyes open, symmetrical, & clear CARDIO: Heart RRR, no obvious murmurs PULM: No noted coughing/dyspnea CTA B/L, no R/W/R GI: Abdomen soft, nondistended, no pain on palpation. BSx4 SKIN/MSK/EXT: No wounds/rashes/edema/amputations, no pain on palpation. Pedal pulses present B/L NEURO: AAOx3, no focal neuro deficits, able to move all 4 extremities Course Course Course Narrative: see [facility] Quality Measures none Orders Category Date Time Status CT head/brain wo con Stat Exams 03/03/25 07:44 Completed CBC Stat Lab 03/03/25 07:54 Completed CMP [Comprehensive Metabolic Panel] Stat Lab 03/03/25 07:54 Completed Drug Screen,Urine Stat Lab 03/03/25 08:01 Completed UA [Urinalysis] Stat Lab 03/03/25 08:01 Completed LORazepam [Ativan] Med 03/03/25 07:44 Discontinued 0.5 mg PO X1 ONE Vital Signs Vital signs: Vital Signs Temperature 97.8 F 03/03/25 07:31 Pulse Rate 62 03/03/25 07:31 Respiratory Rate 16 03/03/25 07:31 Blood Pressure 128/87 H 03/03/25 07:31 Pulse Oximetry (%) 100 03/03/25 07:31 Oxygen Delivery Method Room Air 03/03/25 07:31 Discharge Plan Plan Patient Disposition: HOME (Self Care) Prescriptions/Referrals Prescriptions/Med Rec: No Action ibuprofen 600 mg tablet 600 mg PO Q6H Qty: 30 0RF cyclobenzaprine 5 mg tablet 5 mg PO TID PRN (Reason: muscle spasm) Qty: 30 0RF Problem List Clinical Impression: Hallucination, visual Patient/Caregiver Discharge Instructions Additional Instructions: Follow up with your primary care physician within 1 week of discharge and ask for a referall to an e business consultant/opthalmologist to evaluate your visual symptoms with a slit lamp exam Should your symptoms recur or worsen patient is instructed to return to the ED. Print Language: Mohawk Stand Alone Forms: Kasey Award Info., Patient Portal Info Letter MDM Narrative [facility] hospital course: 44 y/o M with no PMHX who presented to the ED due visual hallucinations. Patient states he was watching his child while watching tv and developed visual disturbances described as bright lights on his peripheral vision bilaterally. He denies any prior history of these symptoms and got anxious and called the ambulance. He denies daily drinking and drug use, only that he vapes. He denies any fever, chills, headache, nausea, vomiting, abdominal pain, sick contacts. 0740: Labs ordered, CT head ordered, ativan po x1 for claustrophobia 0850: Labs unremarkable, CT of the head unremarkable Patient at this time can be safely discharged with strict return precautions. Patient should also see and e business consultant/ opthalmologist for an eye evaluation. Should any symptoms recur or worsen patient is instructed to return to the ED. Clinical Information Provided by patient and EMS Medical Records Reviewed None Medication Administration(s) Medication Administration History Discontinued Medications Lorazepam (Lorazepam 0.5 Mg Tablet) 0.5 mg PO X1 ONE Stop: 03/03/25 07:45 Last Admin: 03/03/25 08:00 Dose: 0.5 mg Documented By: GURINDER Comments: NEHA
[2025-03-03 08:10] LABS: Collection Type, Urine Clean Catch; Squamous Epithelial Cell,Urine 0 /hpf (0-5)
[2025-03-03 08:18] LABS: Basophils # (Auto) 0.0 Thou/mm3 (0.0-0.2); Basophils % (Auto) 1 % (0-2.5); Eosinophils # (Auto) 0.1 Thou/mm3 (0.0-0.5); Eosinophils % (Auto) 2 % (0-10); Hematocrit 41.3 % (41.0-53.0); Hemoglobin 14.0 g/dL (13.5-16.0); Immature Granulocytes Auto 0.02 Thou/mm3 (0.00-0.00); Lymphocytes # (Auto) 1.7 Thou/mm3 (1.0-4.8); Lymphocytes % (Auto) 25 % (10-50); Mean Corpuscular HGB Conc 33.9 g/dl (31.0-37.0); Mean Corpuscular Hemoglobin 30.8 pg (25.0-35.0); Mean Corpuscular Volume 91 fL (80-100); Monocytes # (Auto) 0.8 Thou/mm3 (0.0-0.8); Monocytes % (Auto) 11 % (0-12); Neutrophils # (Auto) 4.2 Thou/mm3 (1.8-7.7); Neutrophils % (Auto) 61 % (37-80); Nucleated Red Blood Cell # 0.00 Thou/mm3 (0.00-0.00); Nucleated Red Blood Cell % 0 /100 WBC (0); Platelet Count 240 Thou/mm3 (140-440); RDW Standard Deviation 40.0 fL (35.1-43.9); Red Blood Count 4.54 Miln/mm3 (4.50-5.90); White Blood Count 6.9 Thou/mm3 (3.8-10.6)
[2025-03-03 08:22] LABS: Bilirubin,Urine Negative (Negative); Blood,Urine Negative (Negative); Clarity,Urine Clear (Clear/Hazy); Color,Urine Lt-Yellow (Lt Yel-Yel); Glucose, Urine Negative (Negative); Ketones,Urine Negative (Negative); Leukocyte Esterase,Urine Negative (Negative); Nitrite,Urine Negative (Negative); PH,Urine 6.5 (5.0-7.0); Protein,Urine Negative (Neg - Trace); RBC,Urine 2 /hpf (0-3); Specific Gravity,Urine 1.018 (1.001-1.035); Urobilinogen,Urine Negative mg/dL (0.0-1.0); WBC,Urine 1 /hpf (0-5)
[2025-03-03 08:28] LABS: Amphetamine/Methamp Scrn,U Negative (Negative); Barbiturate Screen,Urine Negative (Negative); Benzodiazepines Screen,Urine Negative (Negative); Benzoylecgonine Screen, Ur Negative (Negative); Fentanyl Screen,Urine Negative (Negative); Opiate Screen,Urine Negative (Negative); THC Screen,Urine Negative (Negative)
[2025-03-03 08:31] LABS: Alanine Aminotransferase 11 U/L (10-49); Albumin, Serum 4.5 gm/dL (3.5-5.0); Albumin/Globulin Ratio 1.7 (1.2-2.2); Alkaline Phosphatase 90 U/L (46-116); Anion Gap 4 (7-16); Aspartate Amino Transferase 12 U/L (0-34); BUN/Creatinine Ratio 20 Ratio (12-20); Bilirubin,Total 0.9 mg/dL (0.3-1.2); Blood Urea Nitrogen 14 mg/dL (9-23); Calcium 9.0 mg/dL (8.3-10.6); Calcium (Corrected) 9.0 mg/dL (8.5-10.1); Carbon Dioxide 27.2 mMol/L (20.0-31.0); Chloride 110 mMol/L (98-107); Creatinine (Component) 0.7 mg/dL (0.6-1.3); Estimated Creatinine Clearance 118.7 mL/min (>60); Globulin 2.6 gm/dL (2.3-3.5); Glucose 94 mg/dL (74-106); Osmolality,Calculated 281 (275-295); Potassium 3.8 mMol/L (3.4-5.1); Sodium 141 mMol/L (136-145); Total Protein 7.1 gm/dL (5.7-8.2); eGFR > 60 See Note
[2025-03-03 09:18] VITALS: BP 100/61; PULSE 71; RESP 16; TEMP 36.1
== END 2025-03-03 09:19 | disposition home or self-care (01) ==
PROVIDERS: Student in an Organized Health Care Education/Training Program; Emergency Provider Family Medicine; PCP Family Medicine
DX: R44.1 Visual hallucinations (principal)
CPT/HCPCS: 36415; 70450; 80053; 80307; 81001; 85025; 99283; A9270

== ENCOUNTER 2025-03-24 03:16 | Emergency (ER) | payer MEDICAID, SELFPAY ==
[2025-03-24] VITALS (9 sets, daily range): BP systolic 104–128; BP diastolic 51–85; PULSE 50–72; RESP 13–19; TEMP 36.1–36.8; O2SAT 96–100; BMI 21.7
--- NOTE | 2025-03-24 04:10 | EKG_ITS ---
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
--- NOTE | 2025-03-24 04:10 | XR_ITS ---
Examination: PA chest single view TECHNIQUE: Upright PA chest single view Date and time: March 24, 2025, 0427 hours Comparison January 29, 2024 INDICATIONS: Chest pain and shortness of breath today. FINDINGS: Normal heart size Lungs are clear. The osseous structures are intact IMPRESSION: No active disease
[2025-03-24] MEDS: HYDROcodone/APAP 5/325 TABLET 1 TAB PO (04:53)
--- NOTE | 2025-03-24 05:09 | PD.EDRME ---
Rapid Medical Screening Exam RME Arrival date/time: 03/24/25 03:16 45M with history of psych/alcohol presents to ED with 1 day of CP that radiates to back. Patient denies fall/trauma. There is also some SOB. Chief Complaint: General Adult/Misc Complain Time Seen by Provider: 03/24/25 04:11 Vital signs: Vital Signs Temperature 98.1 F 03/24/25 03:22 Pulse Rate 72 03/24/25 03:22 Respiratory Rate 18 03/24/25 03:22 Blood Pressure 123/77 03/24/25 03:22 Pulse Oximetry (%) 98 03/24/25 03:22 Oxygen Delivery Method Room Air 03/24/25 03:22
[2025-03-24 05:23] LABS: Basophils # (Auto) 0.1 Thou/mm3 (0.0-0.2); Basophils % (Auto) 1 % (0-2.5); Eosinophils # (Auto) 0.2 Thou/mm3 (0.0-0.5); Eosinophils % (Auto) 4 % (0-10); Hematocrit 42.1 % (41.0-53.0); Hemoglobin 14.2 g/dL (13.5-16.0); Immature Granulocytes Auto 0.01 Thou/mm3 (0.00-0.00); Lymphocytes # (Auto) 2.6 Thou/mm3 (1.0-4.8); Lymphocytes % (Auto) 40 % (10-50); Mean Corpuscular HGB Conc 33.7 g/dl (31.0-37.0); Mean Corpuscular Hemoglobin 30.7 pg (25.0-35.0); Mean Corpuscular Volume 91 fL (80-100); Monocytes # (Auto) 0.6 Thou/mm3 (0.0-0.8); Monocytes % (Auto) 9 % (0-12); Neutrophils # (Auto) 2.9 Thou/mm3 (1.8-7.7); Neutrophils % (Auto) 46 % (37-80); Nucleated Red Blood Cell # 0.00 Thou/mm3 (0.00-0.00); Nucleated Red Blood Cell % 0 /100 WBC (0); Platelet Count 244 Thou/mm3 (140-440); RDW Standard Deviation 40.8 fL (35.1-43.9); Red Blood Count 4.62 Miln/mm3 (4.50-5.90); White Blood Count 6.4 Thou/mm3 (3.8-10.6)
[2025-03-24 05:50] LABS: Alanine Aminotransferase 14 U/L (10-49); Albumin, Serum 4.1 gm/dL (3.5-5.0); Albumin/Globulin Ratio 1.9 (1.2-2.2); Alkaline Phosphatase 95 U/L (46-116); Anion Gap 6 (7-16); Aspartate Amino Transferase 15 U/L (0-34); BUN/Creatinine Ratio 16 Ratio (12-20); Bilirubin,Total 0.7 mg/dL (0.3-1.2); Blood Urea Nitrogen 13 mg/dL (9-23); Calcium 8.7 mg/dL (8.3-10.6); Calcium (Corrected) 8.7 mg/dL (8.5-10.1); Carbon Dioxide 29.8 mMol/L (20.0-31.0); Chloride 108 mMol/L (98-107); Creatinine (Component) 0.8 mg/dL (0.6-1.3); Estimated Creatinine Clearance 102.1 mL/min (>60); Globulin 2.2 gm/dL (2.3-3.5); Glucose 92 mg/dL (74-106); Lipase 33 U/L (12-53); Osmolality,Calculated 286 (275-295); Potassium 4.0 mMol/L (3.4-5.1); Sodium 144 mMol/L (136-145); Total Protein 6.3 gm/dL (5.7-8.2); Troponin I < 0.002 ng/mL (0.0-0.045); eGFR > 60 See Note
--- NOTE | 2025-03-24 08:48 | PD.EDBACK ---
ED Back Injury Pain RME/HPI General Chief Complaint: General Adult/Misc Complain Stated Complaint: CHEST BACK PAIN Time Seen by Provider: 03/24/25 04:11 Arrival date/time: 03/24/25 03:16 Limitations: no limitations RME / HPI RME / HPI Narrative: 03/24/25 03:16 45M with history of psych/alcohol presents to ED with 1 day of CP that radiates to back. Patient denies fall/trauma. There is also some SOB. DR. HUERTA MAIN ED EVALUATION: 45-year-old male with past medical history of asthma presents to the Emergency Department with complaint of mid spine pain. Patient localizes the pain to the T11?T12 region. He denies any history of smoking, alcohol, or drug use. No history of trauma is noted. 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) RESPIRATORY: Positive Chronic Obstructive Pulmonary Disease (COPD) and Asthma ENT: Positive Head Trauma (Childhood head injury with shunt placement, 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) PSYCHO/SOCIAL: Positive Depression and Anxiety OTHER HISTORY: Positive Chicken Pox Surgical History SURGICAL: Positive Brain Shunt (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) Social History SMOKING STATUS: Never smoker SUBSTANCE USE: does not use ALCOHOL: Never ED Exam General Limitations: Present no limitations General appearance: Present alert and in no apparent distress Head Head exam: Present atraumatic, normocephalic and normal inspection Eye Eye exam: Present normal appearance, PERRL and EOMI ENT ENT exam: Present normal exam, normal oropharynx and mucous membranes moist Neck Neck exam: Present normal inspection, full ROM and trachea midline Chest Chest inspection: Present normal inspection and symmetric chest wall rise Respiratory Respiratory exam: Present normal lung sounds bilaterally Cardiovascular Cardiovascular exam: Present regular rate, normal rhythm and normal heart sounds Abdominal Exam Abdominal exam: Present soft and normal bowel sounds Extremities Exam Extremities exam: Present normal inspection and full ROM Back Exam Back exam: Present full ROM and tenderness (T11-T12 mild spine tenderness) Neurological Exam Neurological exam: Present alert, oriented X3 and CN II-XII intact Psychiatric Psychiatric exam: Present normal affect and normal mood Skin Skin exam: Present warm, dry, intact and normal color Course Quality Measures none Orders Category Date Time Status EKG (ED ONLY) *Do not use* NOW Care 03/24/25 04:10 Completed EKG (ED Only) Stat Exams 03/24/25 04:10 Draft XR chest 1V portable Stat Exams 03/24/25 04:10 Completed XR thoracic spine 2V Stat Exams 03/24/25 08:53 Completed CBC Stat Lab 03/24/25 04:50 Completed Comprehensive Metabolic Panel Stat Lab 03/24/25 04:50 Completed D-Dimer Stat Lab 03/24/25 04:50 Completed Lipase Stat Lab 03/24/25 04:50 Completed Troponin I Stat Lab 03/24/25 04:50 Completed HYDROcodone*/APAP 5/325 [[place] 5/325] Med 03/24/25 04:11 Discontinued 1 tab PO X1 ONE Ketorolac Inj [Toradol Inj] Med 03/24/25 08:53 Discontinued 30 mg IM X1 ONE Vital Signs Vital signs: Vital Signs Temperature 98.1 F 03/24/25 03:22 Pulse Rate 72 03/24/25 03:22 Respiratory Rate 18 03/24/25 03:22 Blood Pressure 123/77 03/24/25 03:22 Pulse Oximetry (%) 98 03/24/25 03:22 Oxygen Delivery Method Room Air 03/24/25 03:22 Back Pain / Injury MDM Narrative MDM Narrative:: IChiquita am scribing for and in the presence of Dr. Huerta. Patient data External records reviewed:: [facility] previous records Clinical information provided by:: patient Social determinants that could affect healthcare access:: none Patient has the following chronic illnesses:: asthma How is presenting disease/condition affected by chronic disease/condition?: uneffected by Evaluation data The following diagnostics were reviewed and interpreted by me:: lab results and radiology exam(s) Lab and/or radiology exams considered but not ordered:: Considered CTA but the d-dimer was negative so no need of CTA. Interpretation Summary: My interpretation: EKG performed at 0450 hours, sinus bradycardia, rate 55, no acute changes, no STEMI Procedure(s): XR chest 1V portable Accession Number(s): [id number] cc: Scott Whitley PA-C; Cristian Farris MD; Marcus Black PA-C~ Examination: PA chest single view TECHNIQUE: Upright PA chest single view Date and time: March 24, 2025, 0427 hours Comparison January 29, 2024 INDICATIONS: Chest pain and shortness of breath today. FINDINGS: Normal heart size Lungs are clear. The osseous structures are intact IMPRESSION: No active disease Dictated By: Cristian Farris MD Procedure(s): XR thoracic spine 2V Accession Number(s): [id number] cc: Camilo Huerta MD; Scott Whitley PA-C; Cristian Farris MD~ Examination: Thoracic spine 3 views TECHNIQUE: AP lateral coned lateral dorsal spine 3 views Date and time: March 24, 2025 0919 hours INDICATIONS: Upper back pain beginning 3 days ago. FINDINGS: Adequate alignment thoracic vertebral bodies No thoracic fracture Mild diffuse thoracic degenerative disc disease IMPRESSION: Mild diffuse thoracic degenerative disc disease Dictated By: Cristian Farris MD Medications / Prescriptions Medications or Prescriptions considered but not ordered:: none Medication administrations:: Medication Administration History Discontinued Medications Hydrocodone Bitart/Acetaminophen (Hydrocodone/Apap 5/325 Tablet) 1 tab PO X1 ONE Stop: 03/24/25 04:12 Last Admin: 03/24/25 04:53 Dose: 1 tab Documented By: JESSIE Ketorolac Tromethamine (Ketorolac Inj 30 Mg/Ml Vial) 30 mg IM X1 ONE Stop: 03/24/25 08:54 Last Admin: 03/24/25 09:14 Dose: 30 mg Documented By: GURINDER see above Consultations Consultation(s) initiated? (list below): No Diagnosis Differential diagnosis back pain/injury: other (musculoskeletal strain, vertebral compression fracture, herniated disc or degenerative disc disease) Most likely diagnosis given after review of the tests above:: Mild diffuse thoracic degenerative disc disease Arthritis Mid back pain Admission Indicated Admission indicated?: not indicated Admission Request Was there a request for admission?: No Disposition Plan Disposition Plan: Discharge Discharge Attestation Discharge Attestation: The patient and all family members were given an opportunity to ask questions and understood the discharge instructions. Discharge instructions specifically effects, indications for sooner follow up or return to the emergency department, and the expected course of current diagnosis. Patient condition: Stable Discharge Plan Plan Patient Disposition: HOME (Self Care) Patient condition on transfer: Stable Prescriptions/Referrals Prescriptions/Med Rec: No Action ibuprofen 600 mg tablet 600 mg PO Q6H Qty: 30 0RF cyclobenzaprine 5 mg tablet 5 mg PO TID PRN (Reason: muscle spasm) Qty: 30 0RF Referrals: Scott Whitley PA-C [Primary Care Provider] - In 1 week Problem List Clinical Impression: Degenerative disc disease, thoracic, Arthritis, Mid back pain Patient/Caregiver Discharge Instructions Additional Instructions: Take Tylenol 500 mg 2 tabs every 6 hours PLUS Advil 200 mg gel 2 tablets as needed for pain. Please follow-up with your primary care physician within 2-3 days. Return to the Emergency Department as needed. Print Language: [place]ill[place] Stand Alone Forms: Kasey Award Info., Patient Portal Info Letter
--- NOTE | 2025-03-24 08:53 | XR_ITS ---
Examination: Thoracic spine 3 views TECHNIQUE: AP lateral coned lateral dorsal spine 3 views Date and time: March 24, 2025 0919 hours INDICATIONS: Upper back pain beginning 3 days ago. FINDINGS: Adequate alignment thoracic vertebral bodies No thoracic fracture Mild diffuse thoracic degenerative disc disease IMPRESSION: Mild diffuse thoracic degenerative disc disease
[2025-03-24] MEDS: KETOROLAC INJ 30 MG/ML VIAL IM (09:14)
[2025-03-24 10:48] LABS: D-Dimer < 250 ng/mL (<600)
== END 2025-03-24 11:00 | disposition home or self-care (01) ==
PROVIDERS: Physician Assistant; Emergency Provider Family Medicine; PCP Physician Assistant
DX: M51.34 Other intervertebral disc degeneration, thoracic region (principal); M47.814 Spondylosis without myelopathy or radiculopathy, thoracic region; R00.1 Bradycardia, unspecified; R07.9 Chest pain, unspecified; R06.02 Shortness of breath
CPT/HCPCS: 36415; 71045; 72070; 80053; 83690; 84484; 85025; 85379; 93005; 96372; 99283; J1885; A9270